=== PATIENT | female | born 1940 | race Caucasian/White ===

== ENCOUNTER 2018-05-17 08:35 | Emergency (ER) | payer MEDICARE, OTHER ==
--- NOTE | 2018-05-17 09:00 | ED Physician Documentation ---
Female Urogenital Problems - HISTORIAN Historian: patient - HPI Chief Complaint: Female Urogenital Problems (Vaginal Bleeding) Additional Information: Patient is a 77-year-old female who presents to the ER with c/o vaginal bleeding- pt states that she wears a pad for stress incontinence and woke up this morning with a brown discoloration on her pad- then she went to the bathroom and had some bright red blood. She states that it has gotten better but she was concerned. She states that she has not seen a doctor in 12 years- no surgical history and went through menopause in her 50s. She takes no medications. Has been very healthy. 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 Description of Menstrual: post-menopause (went thru menopause in her 50s) Contraceptive: none - Associated Symptoms Urinary Symptoms: blood in urine Discharge: other (stress incontinence) - ROS CONST: none GI/: denies: nausea, vomiting CVS/RESP: none EYES/ENT: none NEURO/PSYCH: none MS/SKIN/LYMPH: none - PAST HX Past History: none Other History: none Surgeries/Procedures: none Immunizations: UTD Allergies/Adverse Reactions: Allergies Allergy/AdvReac Type Severity Reaction Status Date / Time No Known Allergies Allergy Verified 05/17/18 09:03 Home Medications: Ambulatory Orders Medication Instructions Recorded Nitrofurantoin Monohyd/M-Cryst 100 mg PO BID #14 capsule 05/17/18 [Macrobid 100 mg Capsule] - SOCIAL HX Smoking History: non-smoker Alcohol Use: none Drug Use: none - FAMILY HX Family History: none Procedures - Additional Procedures Progress: Pelvic exam- positive for blood- endocervical polyp- Rectal exam- hemoccult positive- no symptoms ED Results Lab/Radiology - Orders Orders: ED Orders Category Date Time Status CBC/PLATELET/DIFF Routine Lab 05/17/18 08:54 Ordered CMP Routine Lab 05/17/18 08:54 Ordered URINALYSIS Routine Lab 05/17/18 08:54 Ordered Female Urogenital Problems - EXAM General Appearance: no acute distress, alert EENT: eye inspection normal, ENT inspection normal, pharynx normal, BRICE Neck: nml inspection Respiratory: no resp. distress, breath sounds nml CVS: reg rate & rhythm, heart sounds normal, equal pulses Abdomen: soft, non-tender, nml bowel sounds Rectal: non-tender, heme pos. stool Pelvic: external exam nml, blood in vaginal vault, blood clots in vault (very small), other (cervical polyp) Back: non-tender Skin: color nml, no rash, warm,dry Extremities: non-tender, normal range of motion Neuro: oriented X3, CN's nml as tested, motor nml, sensation nml, mood/affect nml, cognition normal Discharge Clincal Impression: Vaginal polyp, Vaginal bleeding, abnormal, Urinary tract infection Prescriptions: Nitrofurantoin Monohyd/M-Cryst [Macrobid 100 mg Capsule] 100 mg PO BID #14 capsule Referrals: Primary Doctor,Ju [Primary Care Provider] - 2 Days Additional Instructions: Transvaginal Ultrasound scheduled in the morning at 10:30 on 05/18/18. Check in at 10:15. Call Clinic in the morning and schedule appointment to establish care and follow up [phone] Possible referral to [facility] Comments: Spoke with patient in depth about the importance of scheduling appointment at the clinic tomorrow to establish care and get results of transvaginal ultrasound. Discussed finding of polyp and discussed mild vs heavy vaginal bleeding and when to return to ER Discussed possibility of prediabetes (elevated blood sugar this morning >200) CBC WNL Will treat UTI with macrobid Patient had a positive hemoccult- denies rectal bleeding- no abdominal pain or discomfort- no n/v or acid reflux Patient hesitant about seeking further treatment (spent time encouraging her to follow thru) Condition: Good Disposition: 01 HOME, SELF-CARE Decision to Admit: NO Decision Time: 09:56
[2018-05-17 09:26] LABS: MEAN CORPUSCULAR HEMOGLOBIN 31.9 pg (28.0-34.0)
[2018-05-17 09:27] LABS: EOSINOPHILS % 1.1 % (0.0-6.8); MONOCYTES % 5.4 % (0.0-11.0); NEUTROPHILS # 5.3 # k/uL (1.4-7.7)
[2018-05-17 09:30] LABS: eGFR (Non-African) > 60
[2018-05-17 09:53] LABS: APPEARANCE,URINE CLOUDY (CLEAR); COLOR,URINE YELLOW (YELLOW); OCCULT BLOOD,URINE 3+ (NEGATIVE); PH URINE 5.5 (5.0 - 8.0); UROBILINOGEN URINE 0.2 Eu (0.2-1.0)
[2018-05-17 10:03] VITALS: BP 188/84
== END 2018-05-17 09:58 | disposition home or self-care (01) ==
LOC: EDBD 08:35 → ED 08:35
DX: N84.2 Polyp of vagina (principal); N93.9 Abnormal uterine and vaginal bleeding, unspecified; N39.0 Urinary tract infection, site not specified; K92.1 Melena
CPT/HCPCS: 36415; 80053; 81002; 82272; 85025; 87086; 99283

== ENCOUNTER 2019-01-20 07:52 | Emergency (ER) | payer MEDICARE, OTHER ==
--- NOTE | 2019-01-20 07:58 | ED Physician Documentation ---
Chest Pain - HISTORIAN Historian: patient - HPI Stated Complaint: chest pain Chief Complaint: Chest Pain Onset: hours (6) Timing: sudden onset Duration: waxing, waning Last known Well Date: 01/20/19 Last Known Well Time: 02:00 Context: rest Severity: mild Quality: other (just "there " ) Chest Pain Radiation: no radiation, other (initally possibly she has some upper back pain but this has resolved ) Chest Pain Signs/Symptoms: denies: nausea, vomiting, diaphoresis Worsened By: nothing Relieved By: nothing Further Comments: yes (She states about 2 am she had some epigastric "uncomfortable" feeling (per her indication with pointing) She does at times have reflux but she did not feel that is what this pain was. She does not sleep well so she was not asleep it did not wake her. SHe had at this same time some middle back pain that was an "ache" No injury. SHe did not try any OTC meds. She states then the pain continued on and off and the pain was at the worst at the time of her driving in about 15 min ago but has almost totally resolved now. She did not note any injury) - ROS CONST: none MS/LYMPH: none - PAST HX SD risk factors: no pertinent history TAD/AAA risk factors: none Neuro deficit: none GI disease: none Lung disease: none Surgeries/Procedures: none Allergies/Adverse Reactions: Allergies Allergy/AdvReac Type Severity Reaction Status Date / Time nitrofurantoin AdvReac Vomiting Verified 01/20/19 08:07 [From Macrobid] Home Medications: Ambulatory Orders Medication Instructions Recorded NK 01/20/19 - SOCIAL HX Smoking History: non-smoker Alcohol Use: none Drug Use: none - FAMILY HX Family HX: none - VITAL SIGNS Vital Signs: Vital Signs Temp Pulse Resp BP Pulse Ox 188/84 05/17/18 10:00 - REVIEWED ASSESSMENTS Nursing Assessment Reviewed: Yes Vitals Reviewed: Yes Progress - Progress Progress: 0900: Discussed toradol for pain and she did decline DG Chest Pain Physical Exam - EXAM General Appearance: no acute distress, alert, mild distress EENT: eye inspection normal, ENT inspection normal, no signs of dehydration Neck: nml inspection Respiratory: no resp. distress, chest non-tender, nml breath sounds CVS: reg. rate & rhythm, no murmur Abdomen: soft, no distension Skin: warm/dry Extremities: non-tender Neuro: oriented X3 Discharge Clincal Impression: Chest pain Qualifiers: Chest pain type: unspecified Qualified Code(s): R07.9 - Chest pain, unspecified Referrals: Primary Doctor,No [Primary Care Provider] - 2 Days Comments: 1. OTC meds as directed as needed for pain 2. Follow up with PCP in 2-4 days 3. Return to ER For any increased concerns Condition: Stable Disposition: 01 HOME, SELF-CARE Decision to Admit: NO Date of Decison to Admit: 01/20/19 Decision Time: 09:01
[2019-01-20 08:05] LABS: BASOPHILS % 0.3 % (0.0-1.5); NEUTROPHILS # 8.7 # k/uL (1.4-7.7)
[2019-01-20 08:28] LABS: eGFR (Non-African) > 60
--- NOTE | 2019-01-20 08:46 | Diagnostic Imaging Report ---
PATIENT MR#: [id number] PATIENT PATIENT NAME: ANA MOYER DATE OF : 1940 REFERRING PHYSICIAN: Maeve Segundo EXAM DATE: 01/20/2019 ACCESSION NUMBER: [id number] EXAM DESCRIPTION: CHEST 1VIEW Examination: Portable chest History: Evaluate lungs Comparison exam: None provided. Findings: Single view of the chest demonstrates a normal cardiac and mediastinal silhouette. Mildly t ortuous aorta with vascular calcifications. Lung robb without focal infiltrate. No blunting of the costophrenic margin s. Acromioclavicular joint degenerative changes. Impression: No acute pulmonary process. Read by: Dr. Alex Reynoso Transcribed by: Transcribed Date: Electronically signed by: Dr. Alex Reynoso Date signed: 01/20/2019 8:45:51 AM
[2019-01-20 09:26] VITALS: BP 151/64
== END 2019-01-20 09:17 | disposition home or self-care (01) ==
LOC: ED 07:52
DX: R07.9 Chest pain, unspecified (principal)
CPT/HCPCS: 71045; 80053; 83880; 84484; 85025; 99284; S1016